=== PATIENT | male | born 1960 | race Caucasian/White ===

== ENCOUNTER 2017-10-25 16:32 | Emergency (ER) | payer BC, OTHER ==
[2017-10-25] MEDS ORDERED: Ibuprofen TAB* 600 MG PO ONE (17:32)
[2017-10-25] MEDS ORDERED: Albuterol 2.5 MG/3 ML NEB.SOL* (0.083%) INH ONE (17:33)
--- NOTE | 2017-10-25 17:40 | UC ---
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 HAD ST AT ONSET THAT IS NOW RESOLVED. WAS FOUND TO HAVE ELEVATED TEMP 100.2 HERE. - History of Current Complaint Chief Complaint: UCRespiratory Stated Complaint: COUGH Time Seen by Provider: 10/25/17 17:06 Hx Obtained From: Patient Onset/Duration: Gradual Onset, Lasting Days, Still Present Severity Currently: Moderate Severity Initially: Moderate Pain Intensity: 2 Pain Scale Used: 0-10 Numeric Associated Signs & Symptoms: Positive: Fever, Myalgia, Cough, Sore Throat - Allergy/Home Medications Allergies/Adverse Reactions: Allergies Allergy/AdvReac Type Severity Reaction Status Date / Time No Known Allergies Allergy Verified 07/11/15 15:05 Home Medications: Home Medications Acetaminophen/Dextromethorphan [Daytime Cold & Cough Liquid] 10/25/17 [History] PMH/Surg Hx/FS Hx/Imm Hx Endocrine History: Diabetes Cardiovascular History: Hypertension - Surgical History Surgical History: Yes Surgery Procedure, Year, and Place: Hernia repair left groin 2010, Right ankle repair, screws & plates 1983, RIGHT KNEE, LEFT HEEL - Family History Known Family History: Positive: Hypertension, Diabetes - Social History Alcohol Use: Rare Substance Use Type: None Smoking Status (MU): Never Smoked Tobacco Review of Systems Constitutional: Fever, Fatigue ENT: Sore Throat Respiratory: Shortness Of Breath, Cough Cardiovascular: Negative Gastrointestinal: Negative Musculoskeletal: Arthralgia, Myalgia All Other Systems Reviewed And Are Negative: Yes Physical Exam Triage Information Reviewed: Yes Appearance: No Pain Distress, Well-Nourished, Ill-Appearing - MOD Vital Signs: Initial Vital Signs Temp 100.2 F 10/25/17 17:12 Pulse 92 10/25/17 17:12 Resp 16 10/25/17 17:12 BP 135/63 10/25/17 17:12 Pulse Ox 91 10/25/17 17:12 Eyes: Positive: Conjunctiva Clear ENT: Positive: Hearing grossly normal, Pharynx normal, TMs normal Neck: Positive: Supple, Nontender, No Lymphadenopathy Respiratory: Positive: No respiratory distress, No accessory muscle use, Decreased breath sounds, Wheezing - DIFFUSE Cardiovascular Exam: Normal Abdomen Description: Positive: Soft Musculoskeletal: Positive: No Edema Neurological: Positive: Alert Psychological: Positive: Age Appropriate Behavior Skin: Negative: rashes Diagnostics - Laboratory Diagnostic Studies Completed/Ordered: FLU NEG - Radiology CXR Xray Interpretation: No Acute Changes Radiology Interpretation Completed By: Radiologist Re-Evaluation - Re-Evaluation First Eval Re-Evaluation Time: 18:20 Change: Improved Flu Course/Dx - Course Course Of Treatment: CXR UNREMARKABLE. FLU NEG. O2 SAT IMPROVED TO 95% AFTER NEB. TREAT WITH PREDNISONE, ALBUTEROL AND COUGH MED. AZITH IF SX NOT IMPROVING. F/U PCP. - Differential Dx/Diagnosis Provider Diagnoses: ACUTE BRONCHITIS WITH BRONCHOSPASM Discharge - Sign-Out/Discharge Documenting (check all that apply): Discharge/Admit/Transfer - Discharge Plan Condition: Stable Disposition: HOME Prescriptions: Albuterol HFA INHALER* [Ventolin HFA Inhaler*] 2 puff INH Q4H PRN #1 mdi PRN Reason: Shortness Of Breath Azithromycin 500 mg PO DAILY #5 tab Codeine Phosphate/Guaifenesin [Codeine-Guaifen 10-100 mg/5 ml] 5 - 10 ml PO Q6H PRN #150 ml MDD 40ML PRN Reason: Cough predniSONE TAB* [Deltasone TAB*] 50 mg PO DAILY #4 tab Patient Education Materials: Acute Bronchitis (ED), Bronchospasm (ED) Referrals: Robel Walter MD [Primary Care Provider] - If Needed Additional Instructions: CHEST X-RAY UNREMARKABLE TODAY. FLU SWAB NEGATIVE. YOUR SYMPTOMS ARE LIKELY VIRALLY MEDIATED. REST, HYDRATE, OTC MEDS NEEDED. WILL TREAT WITH PREDNISONE AND ALBUTEROL TO HELP WITH AIRWAY INFLAMMATION AND ALSO COUGH MEDICINE. BUT GIVEN YOUR PRESENTATION AND THE LENGTH OF TIME YOU HAVE BEEN ILL WE WILL ALSO GIVE YOU ANTIBIOTICS. I WOULD RECOMMEND HOLDING OFF FOR A FEW DAYS TO SEE IF YOU IMPROVE WITH THE STEROID AND INHALER. IF YOU START THE MEDICINE BE SURE TO TAKE IT FOR THE FULL COURSE. SEEK FOLLOW-UP WITH YOUR PCP IF YOU ARE NOT IMPROVING OVER THE NEXT 1-2 WEEKS. - Billing Disposition and Condition Condition: STABLE Disposition: HOME
--- NOTE | 2017-10-25 18:06 | RAD ---
INDICATION: Cough, fever. COMPARISON: July 14, 2008 CT abdomen. TECHNIQUE: Dual energy PA and routine lateral views of the chest were obtained. REPORT: Clear lungs and pleural spaces. Negative for pneumothorax. The heart, pulmonary vasculature, and mediastinal contours are unremarkable. Unremarkable osseous structures and soft tissue contours. IMPRESSION: No evidence for acute intrathoracic disease.
[2017-10-25] MEDS ORDERED: predniSONE TAB* 20 MG PO ONE (18:22)
[2017-10-25] MEDS ORDERED: Albuterol HFA INHALER* 8 gm MDI INH ONE (18:23)
[2017-10-25] MEDS ORDERED: guaiFENesin/CODIEN 100MG-10MG* 5 ML UDC PO ONE (18:23)
[2017-10-25 18:53] VITALS: BP 124/66
== END 2017-10-25 18:53 | disposition home or self-care (01) ==
LOC: UCEAST 16:32
DX: J20.9 Acute bronchitis, unspecified (principal); E11.9 Type 2 diabetes mellitus without complications; Z79.4 Long term (current) use of insulin; I10 Essential (primary) hypertension
CPT/HCPCS: 71046; 87502; 99213; A9270-GY; G0463; J7512

== ENCOUNTER 2018-04-08 21:01 | Emergency (ER) | payer OTHER ==
[2018-04-08 21:19] VITALS: BP 154/79
--- NOTE | 2018-04-08 21:33 | UC ---
Neck Pain HPI - HPI Summary HPI Summary: 57 yo male presents with left sided neck pain intermittently for the last week. He has been taking ibuprofen with good relief, but says that it is very painful when the ibuprofen wears off. 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 He denies headache, dizziness, injury/trauma, numbness, or tingling. Of note, he did start atorvastatin about 2 months ago. - History of Current Complaint Chief Complaint: UCBackPain Stated Complaint: NECK PAIN Time Seen by Provider: 04/08/18 21:32 Hx Obtained From: Patient Onset/Duration: Gradual Onset Severity: Mild Pain Intensity: 2 - Allergies/Home Medications Allergies/Adverse Reactions: Allergies Allergy/AdvReac Type Severity Reaction Status Date / Time No Known Allergies Allergy Verified 04/08/18 21:08 Home Medications: Home Medications Atorvastatin* [Lipitor*] 20 mg PO 1700 04/08/18 [History Confirmed 04/08/18] Cholesterol Medication 1 tab PO DAILY 04/08/18 [History] PMH/Surg Hx/FS Hx/Imm Hx Endocrine History: Diabetes, Dyslipidemia Cardiovascular History: Hypertension - Surgical History Surgical History: Yes Surgery Procedure, Year, and Place: Hernia repair left groin 2010, Right ankle repair, screws & plates 1983, RIGHT KNEE, LEFT HEEL - Family History Known Family History: Positive: Hypertension, Diabetes - Social History Occupation: Employed Full-time Lives: With Family Alcohol Use: Occasionally Substance Use Type: None Smoking Status (MU): Never Smoked Tobacco Review Of Systems Constitutional: Positive: Negative Skin: Positive: Negative Respiratory: Positive: Negative Cardiovascular: Positive: Negative Musculoskeletal: Positive: Other: - Neck pain Neurological: Positive: Negative Psychological: Positive: Negative All Other Systems Reviewed And Are Negative: Yes Physical Exam - Summary Physical Exam Summary: GENERAL: NAD. WDWN. No pain distress. SKIN: No rashes, sores, lesions, or open wounds. CHEST: No accessory muscle use. Breathing comfortably and in no distress. CV: Pulses intact radial and ulnar. Cap refill <2seconds MSK: LEFT NECK: Moderate TTP with muscle spasm to left upper trapezius muscle. FROM without pain to left shoulder. FROM NTTP cervical spine. Negative spurlings. 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 FROM b/l UEs without pain. NEURO: Alert. Sensations intact hand and all fingers. PSYCH: Age appropriate behavior. Triage Information Reviewed: Yes Vital Signs: Initial Vital Signs Temp 98.3 F 04/08/18 21:06 Pulse 67 04/08/18 21:06 Resp 18 04/08/18 21:06 BP 154/79 04/08/18 21:06 Pulse Ox 97 04/08/18 21:06 Vital Signs Reviewed: Yes Neck Pain Course/Dx - Course Course Of Treatment: I suspect pt has a muscle spasm, possibly due to his daily labor activities or exacerbated by his new statin medication. He was given Toradol in the clinic and an rx for flexeril. Will start him with Physical therapy and have him monitor his progress - if no improvement or if he develops more muscle spasms/aches, to f/u with his PCP to discuss his statin. - Differential Dx/Diagnosis Provider Diagnoses: Neck spasm Discharge - Sign-Out/Discharge Documenting (check all that apply): Patient Departure All imaging exams completed and their final reports reviewed: No Studies - Discharge Plan Condition: Stable Disposition: HOME Prescriptions: Cyclobenzaprine TAB* [Flexeril 10 MG TAB*] 10 mg PO TID PRN #21 tab PRN Reason: Pain Patient Education Materials: Muscle Spasm (ED) Referrals: Robel Walter MD [Primary Care Provider] - Additional Instructions: If you develop a fever, shortness of breath, chest pain, new or worsening symptoms - please call your PCP or go to the ED. Your blood pressure was high at todays visit. Please see your primary provider within 4 weeks for recheck and re-evaluation. 1) Please schedule a follow up appointment with Physical therapy for further treatment - Billing Disposition and Condition Condition: STABLE Disposition: Home
[2018-04-08] MEDS ORDERED: Ketorolac INJ* 60 MG/2 ML VIAL IM ONE (21:43)
[2018-04-08] MEDS ORDERED: Cyclobenzaprine TAB* 10 MG PO ONE (21:50)
== END 2018-04-08 22:30 | disposition home or self-care (01) ==
LOC: UCEAST 21:01
DX: M62.838 Other muscle spasm (principal); E78.5 Hyperlipidemia, unspecified
CPT/HCPCS: 96372; 99212; A9270-GY; G0463; J1885

== ENCOUNTER 2018-09-21 10:31 | Observation (INO) | payer BC, OTHER ==
--- NOTE | 2018-09-21 10:37 | ED ---
HPI Diabetic - HPI Summary HPI Summary: This pt is a 58 y/o male, type 1 DM, presenting to [facility] via EMS for hypoglycemia. EMS reports the pt was found on the floor unconscious by his today. His blood glucose was 12 today. EMS notes pt did take his medications this morning and had a couple of candy bars. Pt denies chest pain or SOB. EMS administered 1 bag of Dextrose and blood glucose was up to 72. Repeat blood glucose was 27 prior to coming in to the ED per EMS. EMS started a second bag of Dextrose as they were coming in to the ED. He did not take any pain medications today. Per EMS pt was also hypoglycemic one week ago with blood glucose of 17 and was administered 2 bags of Dextrose. Pt refused transfer to the ED at that time. EMS notes no recent change in medications. Pt states he takes 28 units of Lantus in the morning. He is unsure of any other medications. - History Of Current Complaint Hx Obtained From: Patient, EMS Onset/Duration: Lasting Hours, Still Present Timing: Hours Severity Currently: Moderate Character: Lethargic Aggravating: Nothing Alleviating: Nothing Associated Signs & Symptoms: Decreased Level of Conciousness Related History: DM I - Allergies/Home Medications Allergies/Adverse Reactions: Allergies Allergy/AdvReac Type Severity Reaction Status Date / Time No Known Allergies Allergy Verified 09/21/18 11:06 Home Medications: Home Medications Insulin GLARGINE(*) [Lantus(*)] 28 unit INJ QAM 09/21/18 [History Confirmed ] PMH/Surg Hx/FS Hx/Imm Hx Endocrine/Hematology History: Reports: Hx Diabetes - DM 1 Denies: Hx Thyroid Disease Cardiovascular History: Reports: Hx Hypertension Respiratory History: Denies: Hx Asthma, Hx Chronic Obstructive Pulmonary Disease (COPD) GI History: Denies: Hx Ulcer - Surgical History Surgery Procedure, Year, and Place: Hernia repair left groin 2010, Right ankle repair, screws & plates 1983, RIGHT KNEE, LEFT HEEL Infectious Disease History: Denies: Hx Clostridium Difficile, Hx Hepatitis, Hx Human Immunodeficiency Virus (HIV), Hx Shingles, Hx Tuberculosis - Family History Known Family History: Positive: Hypertension, Diabetes - Social History Alcohol Use: Occasionally Substance Use Type: Reports: None Smoking Status (MU): Never Smoked Tobacco Review of Systems Constitutional: Other - POS: hypoglycemia Negative: Fever Negative: Chest Pain Negative: Shortness Of Breath Neurological: Other - POS: lethargic All Other Systems Reviewed And Are Negative: Yes Physical Exam - Summary Physical Exam Summary: VITAL SIGNS: Reviewed. GENERAL: Patient is a well-developed and nourished male who is lying comfortable in the stretcher. Patient is not in any acute respiratory distress. HEAD AND FACE: No signs of trauma. No ecchymosis, hematomas or skull depressions. No sinus tenderness. EYES: PERRLA, EOMI x 2, No injected conjunctiva, no nystagmus. EARS: Hearing grossly intact. Ear canals and tympanic membranes are within normal limits. MOUTH: Oropharynx within normal limits. NECK: Supple, trachea is midline, no adenopathy, no JVD, no carotid bruit, no c- spine tenderness, neck with full ROM. CHEST: Symmetric, no tenderness at palpation LUNGS: Clear to auscultation bilaterally. No wheezing or crackles. CVS: Regular rate and rhythm, S1 and S2 present, no murmurs or gallops appreciated. ABDOMEN: Soft, non-tender. No signs of distention. No rebound, no guarding, and no masses palpated. Bowel sounds are normal. EXTREMITIES: FROM in all major joints, no edema, no cyanosis or clubbing. NEURO: Alert and oriented x 3. Pt is somnolent. SKIN: Warm. Pt is clammy. GCS: 15 Triage Information Reviewed: Yes Vital Signs Reviewed: Yes Diagnostics - Laboratory Result Diagrams: 09/21/18 11:38 09/21/18 11:38 Lab Statement: Any lab studies that have been ordered have been reviewed, and results considered in the medical decision making process. - Radiology Chest XR Radiology Interpretation Completed By: Radiologist Summary of Radiographic Findings: IMPRESSION: No active cardiopulmonary disease is noted. Dr. Otero has reviewed this report. - CT Brain CT CT Interpretation Completed By: Radiologist Summary of CT Findings: IMPRESSION: No acute intracranial pathology. Dr. Otero has reviewed this report. - EKG 10:58 Cardiac Rate: NL - at 66 bpm EKG Rhythm: Sinus Rhythm Summary of EKG Findings: No ST elevations. Re-Evaluation - Re-Evaluation First Eval Re-Evaluation Time: 11:30 Comment: Fingerstick BG down to 9. Second Eval Re-Evaluation Time: 12:03 Comment: Fingerstick BG is 43. Diabetic Course/Dx - Course Assessment/Plan: This patient is a 58-year-old male who presents to the emergency department with a chief complaint of altered mental status. The patients blood sugar was 12 initially and he was started on D10. His sugar went up to the 100s. However half an hour later his sugar went down to 28. Patient was then restarted in D10. In the ED the patient is alert and oriented 3. He seems somnolent and his answers are slow. I was informed by the nurse that the fingerstick is 9 therefore I ordered the D50 IV push. And he will be replaced in the dextrose with normal saline at 120 cc per [address] Head CT impression: No acute intracranial pathology. Blood work without any significant abnormality except for potassium level of 2.9, glucose 129. In the ER course the patient had multiple fingersticks and it ranged from 9 to 144. The patient was given multiple doses of D50 and he is in the D10 drip. At this time I discussed my physical exam and findings with and Dr. Espinosa, hospitalist , who accepted the patient for admission. At this point the patient is hemodynamically stable, he is alert oriented 3. - Diagnoses Provider Diagnoses: Uncontrolled diabetes mellitus - Physician Notifications Discussed Care Of Patient With: Марина Espinosa - hospitalist Time Discussed With Above Provider: 12:28 Instructed by Provider To: Admit As Inpatient Discharge - Sign-Out/Discharge Documenting (check all that apply): Patient Departure - Admit to [facility] Patient Received Moderate/Deep Sedation with Procedure: No - Discharge Plan Condition: Stable Disposition: ADMITTED TO [facility] - Billing Disposition and Condition Condition: STABLE Disposition: Admitted to [facility] - Attestation Statements Document Initiated by Jemale: Yes Documenting Scribe: Eleni Royal Provider For Whom Vickie is Documenting (Include Credential): Peyman Otero MD Scribe Attestation: IEleni, scribed for Peyman Otero MD on 09/21/18 at 1842. Scribe Documentation Reviewed: Yes Provider Attestation: The documentation as recorded by the Eleni danielle accurately reflects the service I personally performed and the decisions made by me, Peyman Otero MD Status of Scribe Document: Viewed
[2018-09-21] MEDS ORDERED: Dextrose 50% Syringe 50 ML* 25 GM/50 ML SYRINGE ONE (11:27)
[2018-09-21] MEDS ORDERED: Dextrose 50% Syringe 50 ML* 25 GM/50 ML SYRINGE IV PUSH ONE (11:40)
[2018-09-21 11:55] LABS: ABS Basophils 0 10^3/ul (0-0.2); ABS Eosinophils 0.1 10^3/ul (0-0.6); ABS Lymphocytes 1.4 10^3/ul (1.0-4.8); ABS Monocytes 0.8 10^3/ul (0-0.8); ABS Neutrophils 7.6 10^3/ul (1.5-7.7); ABS Nucleated RBC 0 10^3/ul; Eosinophil % 1.1 %; Hematocrit 40 % (36-46); Hemoglobin 13.4 g/dL (14.0-18.0); Lymphocyte % 14.3 %; Mean Corpuscular HGB Conc 34 g/dL (31-36); Mean Corpuscular Hemoglobin 33 pg (27-31); Mean Corpuscular Volume 98 fL (80-94); Mean Platelet Volume 8.2 fL (7.4-10.4); Nucleated Red Blood Cells % 0; Platelet Count 209 10^3/uL (150-450); Red Blood Count 4.09 10^6 /uL (4.18-5.48); Red Cell Distribution Width 14 % (10.5-15); White Blood Count 9.9 10^3/uL (3.5-10.8)
[2018-09-21] MEDS ORDERED: D10W 1000 ML BAG* 1,000 ML IV SCH (12:00)
[2018-09-21 12:16] LABS: ALT 21 U/L (7-52); AST 21 U/L (13-39); Albumin 4.1 g/dL (3.2-5.2); Albumin/Globulin Ratio 1.7 (1-3); Alkaline Phosphatase 61 U/L (34-104); Anion Gap 6 mmol/L (2-11); BUN/Creatinine Ratio 23.9 (8-20); Blood Urea Nitrogen 22 mg/dL (6-24); CO2 Carbon Dioxide 26 mmol/L (22-32); Calcium 8.7 mg/dL (8.6-10.3); Chloride 107 mmol/L (101-111); Creatine Kinase 85 U/L (10-223); EGFR African American 102.2 (>60); EGFR Non-African American 84.5 (>60); Globulin 2.4 g/dL (2-4); Glucose 123 mg/dL (70-100); Potassium 2.9 mmol/L (3.5-5.0); Sodium 139 mmol/L (135-145); Total Protein 6.5 g/dL (6.4-8.9)
[2018-09-21 12:19] LABS: Acetaminophen < 15 mcg/mL; Alcohol < 10 mg/dL (<10)
[2018-09-21] MEDS ORDERED: Potassium Chlor TAB* 20 MEQ TAB.ER PO ONE (12:22)
[2018-09-21] MEDS ORDERED: KCL 10 MEQ/50 ML IVPREMIX* 10 MEQ/50 ML BAG IV ONE (12:23)
[2018-09-21] MEDS ORDERED: Dextrose 50% VIAL 50 ml ONE (12:24)
[2018-09-21] MEDS ORDERED: Dextrose 50% VIAL 50 ml IV PRN (12:26)
[2018-09-21 12:34] LABS: TSH (Thyroid Stimulating Horm) 7.35 mcIU/mL (0.34-5.60)
[2018-09-21] MEDS ORDERED: Al Hydrox/Mg Hydrox/Simet LIQ* 30 ML UDC PO PRN (13:40)
[2018-09-21] MEDS ORDERED: Dextrose 50% Syringe 50 ML* 25 GM/50 ML SYRINGE IV PUSH PRN ×2 (13:53→20:15)
[2018-09-21] MEDS ORDERED: Enoxaparin(*) 40 MG/0.4 ML SYR SUBCUT SCH (14:00)
[2018-09-21] MEDS: KCL 20 MEQ/100 ML IVPREMIX* 20 MEQ/100 ML BAG IV SCH ×2 (14:13→16:26)
[2018-09-21 14:19] LABS: Free T4 0.87 ng/dL (0.61-1.12)
--- NOTE | 2018-09-21 15:42 | HP ---
CC: Dr. Walter * HISTORY AND PHYSICAL: DATE OF ADMISSION: 09/21/18 TIME OF ADMISSION: 1:45 p.m. CHIEF COMPLAINT: "I don't know." HISTORY OF PRESENT ILLNESS: This is a 58-year-old man with history of type 1 diabetes for the past 48 years, who presents to the emergency department after his found him to be unresponsive this morning. He recalls very little about the morning, so his provides most of the HPI. He woke up after 7. He recalled this and says he felt fine at that time. He took his blood sugar when he woke up and it was 78. Then, he ate some candy, took a shower and took his 28 units of morning insulin. Neither he nor his believe that he took any more than prescribed. His tells the rest of the HPI because he does not remember anything after the shower. She says that after he took a shower, he went to the bedroom and got dressed and she heard him on the phone and then she heard nothing coming from the room, so she went in to check on him and he was unconscious. She called EMS and when EMS arrived, his blood sugar was 12. Of note, something similar happened last week; however, he did not lose consciousness and EMS administered dextrose in the field and he did not come to the emergency department. EMERGENCY DEPARTMENT COURSE: After EMS gave the first dextrose, his blood sugar raised to 72 and then prior to arrival to the ED, it dropped again to 24, so the second dextrose was infusing and when he arrived to the ED, his sugar was 95. After the 95, his next sugar was a 9, which he received an amp of dextrose, then it was 43. He received another amp of dextrose, then it was 28, and after the following amp of dextrose, it was 144. His most recent blood glucose was 102. He was also noted to be hypothermic, so he is currently on a Marc Hugger. He says he feels much better now that he has the Marc Hugger on him. He has no current complaints and has a good appetite. He says the most recent time his insulin was adjusted was approximately 2 months ago and prior to 1 week ago, his sugars have been running on the high side. He reports a good appetite. He has not skipped any meals, and yesterday his intake was normal with a TV dinner for dinner, a slice of pizza for a late lunch/snack, and toast and juice for breakfast. She and her family say this is a normal day for him. He describes no recent illness. He denies fevers, chills, cough, nausea, vomiting, constipation, diarrhea, dysuria, hematuria, muscle aches, or any other symptoms. PAST MEDICAL HISTORY: Type 1 diabetes. HOME MEDICATIONS: 1. He takes Lantus 28 units in the morning. 2. Humalog sliding scale based on sugar, he takes 1 unit for each 50 over 150. 3. Flexeril 10 mg t.i.d. p.r.n. 4. Motrin 800 mg q.8 p.r.n. 5. Atorvastatin 20 mg daily. 6. Ramipril 10 mg daily. ALLERGIES: No known drug allergies. FAMILY HISTORY: His brother has type 1 diabetes and his niece has type 1 diabetes. 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 He drinks no alcohol. He was not working more than usual yesterday. REVIEW OF SYSTEMS: As per the HPI. The remainder of 14-point review of systems is negative. PHYSICAL EXAMINATION GENERAL: Alert, nontoxic-appearing man, in no distress. He is a little sleepy , but participates alertly in our conversation. VITAL SIGNS: Temperature 95.5, heart rate 71, respiratory rate 16, pulse ox 97 % on room air, blood pressure 139/66. HEENT: Pupils are equal, round, and reactive to light. His oral mucosa is dry. NECK: No JVP. No adenopathy. Thyroid is not palpable. CHEST: He is in a regular rate and rhythm with no murmurs. LUNGS: Clear bilaterally. ABDOMEN: Soft, nontender, nondistended. No guarding or rebound. No CVA tenderness. EXTREMITIES: Warm. No edema, rashes, or ulcers. SKIN: He does have some hyperpigmented spots on his back. DIAGNOSTIC STUDIES/LAB DATA: Sodium 139, potassium 2.9, chloride 107, bicarb 26, BUN 22, creatinine 0.92, glucose 123, ammonia 45, TSH 7.35. Troponin 0.00. Alcohol is less than 10, acetaminophen is less than 15, and salicylates is 4.9. White blood cells 9.9, hemoglobin 13.4, platelets 209. Brain CT shows no acute intracranial pathology. A chest x-ray shows no active cardiopulmonary disease and an EKG shows normal sinus rhythm at 66, normal axis , normal intervals, no ST or T-wave changes. ASSESSMENT AND PLAN: This is a 58-year-old man with history of type 1 diabetes , who presents to the emergency department with an episode of unresponsiveness and was found to be profoundly hypoglycemic repeatedly. 1. Hypoglycemia, likely related to his insulin; however, these doses have not been adjusted. He has had a good appetite and has no evidence of localizing infection and certainly not sepsis at this point. He is currently stable on a D10 drip and I am continuing this with q.1 fingersticks and sending him to the ICU. His insulin will be on hold and he needs more of a workup to evaluate for hypoglycemia. His TSH is elevated and more thyroid studies are pending. Hemoglobin A1c is pending. I am cycling his troponins and getting a morning cortisol. His renal function is normal and his liver function is normal as well. I am consulting Dr. Walter and appreciate his input from endocrine standpoint as well as from a primary care standpoint. I am also sending blood cultures. 2. Hypothermia. I suspect this is related to the hypoglycemia; however, may also be a reflection of another systemic issue working up as above. He is currently on a Marc Hugger. 3. Hypertension. He is normotensive. I am continuing his ramipril. 4. DVT prophylaxis: Lovenox subcu. 5. Diet: Unrestricted. 6. Disposition: Admit to the ICU for frequent Accu-Cheks and evaluation by Dr. Walter. [id number]/[facility] #: [id number] JOELLE
[2018-09-21 16:43] LABS: Urine Appearance Clear; Urine Bilirubin Negative (Negative); Urine Blood Negative (Negative); Urine Color Straw; Urine Glucose 2+(150 mg/dL) (Negative); Urine Ketones Negative (Negative); Urine Nitrite Negative (Negative); Urine Protein Negative (Negative); Urine Specific Gravity 1.008 (1.010-1.030); Urine Urobilinogen Negative (Negative)
[2018-09-21 16:57] LABS: Barbiturates Urine Screen None Detected (None Detect); Benzodiazepine Urine Screen None Detected (None Detect); Urine Cannabinoids Screen None Detected (None Detect)
[2018-09-21] MEDS ORDERED: Atorvastatin* 20 MG TAB PO SCH (17:00)
[2018-09-21] MEDS: Insulin LISPRO* 1 UNITS UNIT SUBCUT SCH (21:53)
[2018-09-22] MEDS: Insulin LISPRO* 1 UNITS UNIT SUBCUT SCH ×4 (00:16→10:24)
[2018-09-22 05:55] LABS: ABS Basophils 0 10^3/ul (0-0.2); ABS Eosinophils 0.1 10^3/ul (0-0.6); ABS Lymphocytes 1.4 10^3/ul (1.0-4.8); ABS Monocytes 0.6 10^3/ul (0-0.8); ABS Neutrophils 6.1 10^3/ul (1.5-7.7); ABS Nucleated RBC 0 10^3/ul; Eosinophil % 0.8 %; Hematocrit 37 % (36-46); Hemoglobin 12.4 g/dL (14.0-18.0); Mean Corpuscular HGB Conc 34 g/dL (31-36); Mean Corpuscular Hemoglobin 33 pg (27-31); Mean Corpuscular Volume 97 fL (80-94); Mean Platelet Volume 8.1 fL (7.4-10.4); Nucleated Red Blood Cells % 0; Platelet Count 189 10^3/uL (150-450); Red Cell Distribution Width 14 % (10.5-15); White Blood Count 8.2 10^3/uL (3.5-10.8)
[2018-09-22] MEDS ORDERED: Insulin GLARGINE(*) 1 UNITS UNIT SUBCUT SCH ×2 (06:00→08:00)
[2018-09-22 06:15] LABS: BUN/Creatinine Ratio 18.1 (8-20); Calcium 8.7 mg/dL (8.6-10.3); EGFR African American 99.7 (>60); EGFR Non-African American 82.4 (>60); Potassium 4.5 mmol/L (3.5-5.0)
--- NOTE | 2018-09-22 07:38 | PN ---
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 1 week ago he had a similar episode. He injects his lantus insulin into his thigh - has never used his abdomen. He had a glucose < 50 mg/dl. Yesterday, he only took lantus 28 units and his glucose dropped precipitously despite having some candy. It required IV infusion of dextrose to bring it up. He is adamant he didn't take any short acting insulin and that he didn't mix up the pen devices. He has had labile glycemic control for years and has been resistant to change. He has had no other intercurrent illnesses recently and no nausea/vomiting. This morning he is feeling back to baseline. He has no focal symptoms Active Problems: Active Problems Severe diabetic hypoglycemia (Acute) E11.649 Diabetic retinopathy associated with type 1 diabetes mellitus (Chronic) E10.319 History of Bibi thyroiditis (Chronic) Z86.39 Hypercholesterolemia (Chronic) E78.00 Type 1 diabetes mellitus (Chronic) Current Medications: Current Medications Al Hydrox/Mg Hydrox/Simethicone (Maalox Plus*) 30 ml PO Q6H PRN PRN Reason: INDIGESTION Atorvastatin Calcium (Lipitor*) 20 mg PO 1700 JENNA Last Admin: 09/21/18 17:28 Dose: 20 mg Dextrose (D50w Syringe 50 Ml*) 25 gm IV PUSH .FOR FS < 60 - SS PRN PRN Reason: FS < 60 Enoxaparin Sodium (Lovenox(*)) 40 mg SUBCUT Q24H [facility] Last Admin: 09/21/18 14:52 Dose: 40 mg Insulin Glargine (Lantus(*)) 14 units SUBCUT Q24H JENNA Insulin Human Lispro (Humalog*) 0 units SUBCUT Q3HR JENNA; Protocol Last Admin: 09/22/18 06:22 Dose: Not Given Ramipril (Altace Cap*) 10 mg PO DAILY [facility] Home Medications: Home Medications Medication Instructions Recorded Confirmed Type Ibuprofen TAB* [Advil TAB*] 800 tab PO Q8HR PRN 01/06/13 09/21/18 History Insulin Lispro [Humalog] 1 - 100 unit INJ SEE INSTRUCTIONS 01/06/13 09/21/18 History PRN Ramipril CAP* [Altace CAP*] 10 mg PO DAILY 01/06/13 09/21/18 History Atorvastatin* [Lipitor*] 20 mg PO 1700 04/08/18 09/21/18 History Cyclobenzaprine TAB* [Flexeril 10 10 mg PO TID PRN #21 tab 04/08/18 09/21/18 Rx MG TAB*] Insulin GLARGINE(*) [Lantus(*)] 28 unit INJ QAM 09/21/18 09/21/18 History Allergies: Allergies Allergy/AdvReac Type Severity Reaction Status Date / Time No Known Allergies Allergy Verified 09/21/18 11:06 Objective - Vital Signs Vital Signs: Vital Signs 09/21/18 09/21/18 09/21/18 10:42 10:43 10:44 Temperature 95.5 F Pulse Rate 65 62 Respiratory 14 19 19 Rate Blood Pressure 155/66 155/66 (mmHg) O2 Sat by Pulse 99 99 Oximetry 09/21/18 09/21/18 09/21/18 10:59 11:00 11:43 Temperature Pulse Rate 65 69 58 Respiratory 23 15 Rate Blood Pressure 131/85 (mmHg) O2 Sat by Pulse 98 98 Oximetry 09/21/18 09/21/18 09/21/18 12:00 12:06 12:08 Temperature Pulse Rate 64 63 66 Respiratory 16 13 18 Rate Blood Pressure 155/82 150/78 (mmHg) O2 Sat by Pulse 98 99 99 Oximetry 09/21/18 09/21/18 09/21/18 12:09 12:10 12:14 Temperature Pulse Rate 67 65 66 Respiratory 21 15 13 Rate Blood Pressure 160/78 141/71 135/67 (mmHg) O2 Sat by Pulse 98 98 98 Oximetry 09/21/18 09/21/18 09/21/18 12:19 12:43 13:00 Temperature Pulse Rate 68 65 65 Respiratory 22 21 17 Rate Blood Pressure 143/70 140/70 (mmHg) O2 Sat by Pulse 98 98 98 Oximetry 09/21/18 09/21/18 09/21/18 13:13 13:43 14:00 Temperature Pulse Rate 65 71 67 Respiratory 15 16 14 Rate Blood Pressure 128/70 139/66 (mmHg) O2 Sat by Pulse 97 97 98 Oximetry 09/21/18 09/21/18 09/21/18 14:13 14:15 14:29 Temperature 97.9 F Pulse Rate 70 73 74 Respiratory 20 17 22 Rate Blood Pressure 137/70 137/70 130/60 (mmHg) O2 Sat by Pulse 98 98 97 Oximetry 09/21/18 09/21/18 09/21/18 14:30 15:00 15:01 Temperature 98.4 F Pulse Rate 73 73 74 Respiratory 23 18 20 Rate Blood Pressure 130/60 146/64 (mmHg) O2 Sat by Pulse 98 97 99 Oximetry 09/21/18 09/21/18 09/21/18 15:30 16:00 16:01 Temperature 97.2 F Pulse Rate 77 77 76 Respiratory 19 18 18 Rate Blood Pressure 149/69 143/69 (mmHg) O2 Sat by Pulse 99 99 98 Oximetry 09/21/18 09/21/18 09/21/18 17:00 17:01 18:00 Temperature Pulse Rate Respiratory 22 20 20 Rate Blood Pressure (mmHg) O2 Sat by Pulse Oximetry 09/21/18 09/21/18 09/21/18 18:19 19:00 19:50 Temperature 99.3 F Pulse Rate 81 82 Respiratory 23 19 Rate Blood Pressure 133/61 142/66 (mmHg) O2 Sat by Pulse 100 99 Oximetry 09/21/18 09/21/18 09/21/18 19:53 20:00 21:00 Temperature Pulse Rate 76 81 Respiratory 17 23 17 Rate Blood Pressure 133/59 143/66 (mmHg) O2 Sat by Pulse 97 97 Oximetry 09/21/18 09/22/18 09/22/18 23:40 00:00 01:00 Temperature Pulse Rate Respiratory 18 16 16 Rate Blood Pressure (mmHg) O2 Sat by Pulse Oximetry 09/22/18 03:32 Temperature 98.8 F Pulse Rate 76 Respiratory 16 Rate Blood Pressure 133/62 (mmHg) O2 Sat by Pulse 95 Oximetry - Intake and Output Intake and Output: Intake & Output 09/19/18 09/20/18 09/21/18 09/22/18 11:59 11:59 11:59 11:59 Intake Total 400 Output Total 1080 Balance -680 Weight 150 lb 150 lb Intake: IV Fluids 400 Oral 0 Output: Urine 1080 Other: # Voids 0 ADLs: Meal Record Start: 09/21/18 14: 14 Freq: 09,13,18 Status: Active Protocol: Created 09/21/18 14:14 System (Rec: 03/25/19 14:14 System [id number]) Document 09/21/18 18:00 [id number] (Rec: 09/21/18 18:26 [id number] ICU-M25) Intake and Output Start: 09/21/18 10: 58 Freq: Status: Complete Protocol: Created 09/21/18 10:58 System (Rec: 09/21/18 10:58 System [id number]) Intake and Output Start: 09/21/18 14: 14 Freq: Q4H Status: Active Protocol: Created 09/21/18 14:14 System (Rec: 09/21/18 14:14 System ICU-C06) Document 09/21/18 16:00 [id number] (Rec: 09/21/18 16:26 [id number] ICU-C20) Document 09/21/18 17:00 [id number] (Rec: 09/21/18 17:15 [id number] ICU-M25) Document 09/21/18 19:00 [id number] (Rec: 09/21/18 19:10 [id number] ICU-C16) Document 09/21/18 19:53 [id number] (Rec: 09/21/18 19:59 [id number] ICU-M33) Document 09/21/18 21:00 [id number] (Rec: 09/22/18 01:14 [id number] MEDL-C01) Document 09/21/18 22:00 [id number] (Rec: 09/22/18 01:14 [id number] MEDL-C01) Document 09/21/18 23:00 [id number] (Rec: 09/22/18 01:14 [id number] MEDL-C01) Document 09/22/18 00:00 [id number] (Rec: 09/22/18 01:15 [id number] MEDL-C01) Document 09/22/18 01:00 [id number] (Rec: 09/22/18 01:15 [id number] MEDL-C01) Document 09/22/18 01:17 [id number] (Rec: 09/22/18 01:23 [id number] MEDL-C01) Document 09/22/18 05:17 [id number] (Rec: 09/22/18 05:19 [id number] MED-C11) - Physical Exam General: No Cyanosis, No Anemia, No Jaundice, No Clubbing Skin: Normal: Rash Lungs and Chest: Yes: Chest Expansion Full, Chest Expansion Symetrica, Percussion Note Resonant, Vessicular Breath Sounds. No: Crackles, Wheezes Heart Rate and Rhythm: Regular JVP: Not Elevated Additional Cardiovascular: Yes: Normal Heart Sounds. No: Heart Murmur, Pedal Edema Abdominal Exam: Yes: Soft, Bowel Sounds Present. No: Distention, Abdominal Mass , Hepatomegaly, Abdominal Tenderness - Extremities Cranial Nerves II-XII Intact: Yes Limbs: Normal Power, Normal Tone, Normal Coordination - Neuro Orientation: A/O x3 Psychiatric: Normal Speech: Normal Results - Results Lab Results: Laboratory Results - last 24 hr 09/21/18 09/21/18 09/21/18 10:53 11:24 11:26 WBC RBC Hgb Hct MCV MCH MCHC RDW Plt Count MPV Neut % (Auto) Lymph % (Auto) [place] % (Auto) Eos % (Auto) Baso % (Auto) Absolute Neuts (auto) Absolute Lymphs (auto) Absolute Monos (auto) Absolute Eos (auto) Absolute Basos (auto) Absolute Nucleated RBC Nucleated RBC % Sodium Potassium Chloride Carbon Dioxide Anion Gap BUN Creatinine Est GFR ( Amer) Est GFR (Non-Af Amer) BUN/Creatinine Ratio Glucose POC Glucose (mg/dL) 95 9 L* 9 L* Lactic Acid Calcium Total Bilirubin AST ALT Alkaline Phosphatase Ammonia Total Creatine Kinase Troponin I Total Protein Albumin Globulin Albumin/Globulin Ratio TSH Free T4 Total T3 Cortisol Urine Color Urine Appearance Urine pH Ur Specific [place] Urine Protein Urine Ketones Urine Blood Urine Nitrate Urine Bilirubin Urine Urobilinogen Ur Leukocyte Esterase Urine Glucose Salicylates Urine Opiates Screen Acetaminophen Ur Barbiturates Screen Ur Phencyclidine Scrn Ur Amphetamines Screen U Benzodiazepines Scrn Urine Cocaine Screen U Cannabinoids Screen Serum Alcohol 09/21/18 09/21/18 09/21/18 11:38 11:38 11:38 WBC 9.9 RBC 4.09 L Hgb 13.4 L Hct 40 MCV 98 H MCH 33 H MCHC 34 RDW 14 Plt Count 209 MPV 8.2 Neut % (Auto) 76.1 Lymph % (Auto) 14.3 [place] % (Auto) 8.1 Eos % (Auto) 1.1 Baso % (Auto) 0.4 Absolute Neuts (auto) 7.6 Absolute Lymphs (auto) 1.4 Absolute Monos (auto) 0.8 Absolute Eos (auto) 0.1 Absolute Basos (auto) 0 Absolute Nucleated RBC 0 Nucleated RBC % 0 Sodium 139 Potassium 2.9 L Chloride 107 Carbon Dioxide 26 Anion Gap 6 BUN 22 Creatinine 0.92 Est GFR ( Amer) 102.2 Est GFR (Non-Af Amer) 84.5 BUN/Creatinine Ratio 23.9 H Glucose 123 H POC Glucose (mg/dL) Lactic Acid Calcium 8.7 Total Bilirubin 0.40 AST 21 ALT 21 Alkaline Phosphatase 61 Ammonia 45 Total Creatine Kinase 85 Troponin I 0.00 Total Protein 6.5 Albumin 4.1 Globulin 2.4 Albumin/Globulin Ratio 1.7 TSH 7.35 H Free T4 0.87 Total T3 99 Cortisol Urine Color Urine Appearance Urine pH Ur Specific [place] Urine Protein Urine Ketones Urine Blood Urine Nitrate Urine Bilirubin Urine Urobilinogen Ur Leukocyte Esterase Urine Glucose Salicylates 4.90 Urine Opiates Screen Acetaminophen < 15 Ur Barbiturates Screen Ur Phencyclidine Scrn Ur Amphetamines Screen U Benzodiazepines Scrn Urine Cocaine Screen U Cannabinoids Screen Serum Alcohol < 10 09/21/18 09/21/18 09/21/18 11:38 11:38 12:01 WBC RBC Hgb Hct MCV MCH MCHC RDW Plt Count MPV Neut % (Auto) Lymph % (Auto) [place] % (Auto) Eos % (Auto) Baso % (Auto) Absolute Neuts (auto) Absolute Lymphs (auto) Absolute Monos (auto) Absolute Eos (auto) Absolute Basos (auto) Absolute Nucleated RBC Nucleated RBC % Sodium Potassium Chloride Carbon Dioxide Anion Gap BUN Creatinine Est GFR ( Amer) Est GFR (Non-Af Amer) BUN/Creatinine Ratio Glucose POC Glucose (mg/dL) 43 L Lactic Acid 1.6 Calcium Total Bilirubin AST ALT Alkaline Phosphatase Ammonia Total Creatine Kinase Troponin I Total Protein Albumin Globulin Albumin/Globulin Ratio TSH Free T4 Total T3 Cortisol Urine Color Urine Appearance Urine pH Ur Specific [place] Urine Protein Urine Ketones Urine Blood Urine Nitrate Urine Bilirubin Urine Urobilinogen Ur Leukocyte Esterase Urine Glucose Salicylates Urine Opiates Screen None detected Acetaminophen Ur Barbiturates Screen None detected Ur Phencyclidine Scrn None detected Ur Amphetamines Screen None detected U Benzodiazepines Scrn None detected Urine Cocaine Screen None detected U Cannabinoids Screen None detected Serum Alcohol 09/21/18 09/21/1809/21/19 12:20 12:58 13:34 WBC RBC Hgb Hct MCV MCH MCHC RDW Plt Count MPV Neut % (Auto) Lymph % (Auto) [place] % (Auto) Eos % (Auto) Baso % (Auto) Absolute Neuts (auto) Absolute Lymphs (auto) Absolute Monos (auto) Absolute Eos (auto) Absolute Basos (auto) Absolute Nucleated RBC Nucleated RBC % Sodium Potassium Chloride Carbon Dioxide Anion Gap BUN Creatinine Est GFR ( Amer) Est GFR (Non-Af Amer) BUN/Creatinine Ratio Glucose POC Glucose (mg/dL) 28 L* 144 H 102 H Lactic Acid Calcium Total Bilirubin AST ALT Alkaline Phosphatase Ammonia Total Creatine Kinase Troponin I Total Protein Albumin Globulin Albumin/Globulin Ratio TSH Free T4 Total T3 Cortisol Urine Color Urine Appearance Urine pH Ur Specific [place] Urine Protein Urine Ketones Urine Blood Urine Nitrate Urine Bilirubin Urine Urobilinogen Ur Leukocyte Esterase Urine Glucose Salicylates Urine Opiates Screen Acetaminophen Ur Barbiturates Screen Ur Phencyclidine Scrn Ur Amphetamines Screen U Benzodiazepines Scrn Urine Cocaine Screen U Cannabinoids Screen Serum Alcohol 09/21/18 09/21/18 09/21/18 13:57 14:11 15:00 WBC RBC Hgb Hct MCV MCH MCHC RDW Plt Count MPV Neut % (Auto) Lymph % (Auto) [place] % (Auto) Eos % (Auto) Baso % (Auto) Absolute Neuts (auto) Absolute Lymphs (auto) Absolute Monos (auto) Absolute Eos (auto) Absolute Basos (auto) Absolute Nucleated RBC Nucleated RBC % Sodium Potassium Chloride Carbon Dioxide Anion Gap BUN Creatinine Est GFR ( Amer) Est GFR (Non-Af Amer) BUN/Creatinine Ratio Glucose POC Glucose (mg/dL) 108 H 199 H Lactic Acid Calcium Total Bilirubin AST ALT Alkaline Phosphatase Ammonia Total Creatine Kinase Troponin I 0.01 Total Protein Albumin Globulin Albumin/Globulin Ratio TSH Free T4 Total T3 Cortisol Urine Color Urine Appearance Urine pH Ur Specific [place] Urine Protein Urine Ketones Urine Blood Urine Nitrate Urine Bilirubin Urine Urobilinogen Ur Leukocyte Esterase Urine Glucose Salicylates Urine Opiates Screen Acetaminophen Ur Barbiturates Screen Ur Phencyclidine Scrn Ur Amphetamines Screen U Benzodiazepines Scrn Urine Cocaine Screen U Cannabinoids Screen Serum Alcohol 09/21/18 09/21/18 09/21/18 15:43 16:23 16:53 WBC RBC Hgb Hct MCV MCH MCHC RDW Plt Count MPV Neut % (Auto) Lymph % (Auto) [place] % (Auto) Eos % (Auto) Baso % (Auto) Absolute Neuts (auto) Absolute Lymphs (auto) Absolute Monos (auto) Absolute Eos (auto) Absolute Basos (auto) Absolute Nucleated RBC Nucleated RBC % Sodium Potassium Chloride Carbon Dioxide Anion Gap BUN Creatinine Est GFR ( Amer) Est GFR (Non-Af Amer) BUN/Creatinine Ratio Glucose POC Glucose (mg/dL) 253 H 233 H Lactic Acid Calcium Total Bilirubin AST ALT Alkaline Phosphatase Ammonia Total Creatine Kinase Troponin I Total Protein Albumin Globulin Albumin/Globulin Ratio TSH Free T4 Total T3 Cortisol Urine Color Straw Urine Appearance Clear Urine pH 5.0 Ur Specific [place] 1.008 L Urine Protein Negative Urine Ketones Negative Urine Blood Negative Urine Nitrate Negative Urine Bilirubin Negative Urine Urobilinogen Negative Ur Leukocyte Esterase Negative Urine Glucose 2+(150 mg/dl) A Salicylates Urine Opiates Screen Acetaminophen Ur Barbiturates Screen Ur Phencyclidine Scrn Ur Amphetamines Screen U Benzodiazepines Scrn Urine Cocaine Screen U Cannabinoids Screen Serum Alcohol 09/21/18 09/21/18 09/21/18 18:22 19:07 19:46 WBC RBC Hgb Hct MCV MCH MCHC RDW Plt Count MPV Neut % (Auto) Lymph % (Auto) [place] % (Auto) Eos % (Auto) Baso % (Auto) Absolute Neuts (auto) Absolute Lymphs (auto) Absolute Monos (auto) Absolute Eos (auto) Absolute Basos (auto) Absolute Nucleated RBC Nucleated RBC % Sodium Potassium Chloride Carbon Dioxide Anion Gap BUN Creatinine Est GFR ( Amer) Est GFR (Non-Af Amer) BUN/Creatinine Ratio Glucose POC Glucose (mg/dL) 220 H 262 H Lactic Acid Calcium Total Bilirubin AST ALT Alkaline Phosphatase Ammonia Total Creatine Kinase Troponin I 0.02 Total Protein Albumin Globulin Albumin/Globulin Ratio TSH Free T4 Total T3 Cortisol Urine Color Urine Appearance Urine pH Ur Specific [place] Urine Protein Urine Ketones Urine Blood Urine Nitrate Urine Bilirubin Urine Urobilinogen Ur Leukocyte Esterase Urine Glucose Salicylates Urine Opiates Screen Acetaminophen Ur Barbiturates Screen Ur Phencyclidine Scrn Ur Amphetamines Screen U Benzodiazepines Scrn Urine Cocaine Screen U Cannabinoids Screen Serum Alcohol 09/21/18 09/21/18 09/21/18 20:06 21:35 23:55 WBC RBC Hgb Hct MCV MCH MCHC RDW Plt Count MPV Neut % (Auto) Lymph % (Auto) [place] % (Auto) Eos % (Auto) Baso % (Auto) Absolute Neuts (auto) Absolute Lymphs (auto) Absolute Monos (auto) Absolute Eos (auto) Absolute Basos (auto) Absolute Nucleated RBC Nucleated RBC % Sodium Potassium Chloride Carbon Dioxide Anion Gap BUN Creatinine Est GFR ( Amer) Est GFR (Non-Af Amer) BUN/Creatinine Ratio Glucose POC Glucose (mg/dL) 319 H 381 H 214 H Lactic Acid Calcium Total Bilirubin AST ALT Alkaline Phosphatase Ammonia Total Creatine Kinase Troponin I Total Protein Albumin Globulin Albumin/Globulin Ratio TSH Free T4 Total T3 Cortisol Urine Color Urine Appearance Urine pH Ur Specific [place] Urine Protein Urine Ketones Urine Blood Urine Nitrate Urine Bilirubin Urine Urobilinogen Ur Leukocyte Esterase Urine Glucose Salicylates Urine Opiates Screen Acetaminophen Ur Barbiturates Screen Ur Phencyclidine Scrn Ur Amphetamines Screen U Benzodiazepines Scrn Urine Cocaine Screen U Cannabinoids Screen Serum Alcohol 09/22/18 09/22/18 09/22/18 03:20 05:43 05:43 WBC 8.2 RBC 3.80 L Hgb 12.4 L Hct 37 MCV 97 H MCH 33 H MCHC 34 RDW 14 Plt Count 189 MPV 8.1 Neut % (Auto) 74.8 Lymph % (Auto) 17.0 [place] % (Auto) 6.9 Eos % (Auto) 0.8 Baso % (Auto) 0.5 Absolute Neuts (auto) 6.1 Absolute Lymphs (auto) 1.4 Absolute Monos (auto) 0.6 Absolute Eos (auto) 0.1 Absolute Basos (auto) 0 Absolute Nucleated RBC 0 Nucleated RBC % 0 Sodium 137 Potassium 4.5 D Chloride 105 Carbon Dioxide 26 Anion Gap 6 BUN 17 Creatinine 0.94 Est GFR ( Amer) 99.7 Est GFR (Non-Af Amer) 82.4 BUN/Creatinine Ratio 18.1 Glucose 256 H POC Glucose (mg/dL) 251 H Lactic Acid Calcium 8.7 Total Bilirubin AST ALT Alkaline Phosphatase Ammonia Total Creatine Kinase Troponin I Total Protein Albumin Globulin Albumin/Globulin Ratio TSH Free T4 Total T3 Cortisol 10.89 Urine Color Urine Appearance Urine pH Ur Specific [place] Urine Protein Urine Ketones Urine Blood Urine Nitrate Urine Bilirubin Urine Urobilinogen Ur Leukocyte Esterase Urine Glucose Salicylates Urine Opiates Screen Acetaminophen Ur Barbiturates Screen Ur Phencyclidine Scrn Ur Amphetamines Screen U Benzodiazepines Scrn Urine Cocaine Screen U Cannabinoids Screen Serum Alcohol Radiology Results: Patient Name: ROGER DUNBAR Medical Record#: [id number] Ordering Physician: Peyman Otero MD Acct.#: [id number] : 1960 Age: 58 Sex: M Location: EMERGENCY DEPARTMENT Exam Date: 09/21/18 1040 ADM Status: REG ER Order Information: CT BRAIN WO Accession Number: [id number] CPT: 15598 HISTORY: AMS COMPARISONS: None TECHNIQUE: Multiple contiguous axial CT scans were obtained of the head without intravenous contrast. FINDINGS: HEMORRHAGE/INFARCT: There is no hemorrhage or acute infarct. MASSES/SHIFT: There is no mass or shift. EXTRA-AXIAL SPACES: There are no extra-axial fluid collections. SULCI AND VENTRICLES: The sulci and ventricles are normal in size and position for the patient's stated age. CEREBRUM: There are no focal parenchymal abnormalities. BRAINSTEM: There are no focal parenchymal abnormalities. CEREBELLUM: There are no focal parenchymal abnormalities. VESSELS: The vessels are grossly normal. PARANASAL SINUSES: The paranasal sinuses are clear. ORBITS: The orbits are unremarkable. BONES AND SOFT TISSUE: No bone or soft tissue abnormalities are noted. OTHER: None IMPRESSION: NO ACUTE INTRACRANIAL PATHOLOGY. <Electronically signed by Chinmay Vincent MD in [facility]> 09/21/18 1121 Dictated By: Chinmay Vincent MD Dictated Date/Time: 09/21/18 1121 Transcribed Date/Time: 09/21/18 112 Copy to: Patient Name: ROGER DUNBAR Medical Record#: [id number] Ordering Physician: Peyman Otero MD Acct.#: [id number] : 1960 Age: 58 Sex: M Location: EMERGENCY DEPARTMENT Exam Date: 09/21/18 1040 ADM Status: REG ER Order Information: CHEST AP OR PORT Accession Number: [id number] CPT: 42084 Indication: Confusion, altered mental status Single frontal view of the chest performed at 1102 hours was reviewed. Comparison is made with previous exam dated October 17, 2014. No mediastinal shift is noted. Heart is of normal size and configuration. Lung urias appear clear. IMPRESSION: NO ACTIVE CARDIOPULMONARY DISEASE IS NOTED. <Electronically signed by Elizabeth Godinez MD in [facility]> 09/21/18 1143 Dictated By: Elizabeth Godinez MD Dictated Date/Time: 09/21/18 1143 Transcribed Date/Time: 09/21/18 1139 Copy to: EKG Report: His EKG shows normal sinus rhythm (I reviewed this myself) Assessment - Problem List Assessment: Patient Problems Severe diabetic hypoglycemia (Acute) Diabetic retinopathy associated with type 1 diabetes mellitus (Chronic) History of Bibi thyroiditis (Chronic) Hypercholesterolemia (Chronic) Type 1 diabetes mellitus (Chronic) Plan: Severe diabetic hypoglycemia (Acute)Type 1 diabetes mellitus (Chronic) He has had x 2 major hypoglycemic episodes in the morning recently - the second requiring hospital observation. He has no neurocognitive deficits this morning that are detectable. Adrenal insufficiency has been ruled out. Possibilities: - He mixed up his lantus insulin with his novolog - he denies this is possible - He injected a vein in his leg. He refuses to use his abdomen - He didn't eat at the time of the injection - he states he took no novolog and lantus should not act so quickly - He has gastroparesis that may have stopped the candy he ate from working. Solutions: - Cut lantus to 24 units daily - Inject in his abdomen (he won't) - Continuous glucose monitor - most likely Dexcom G6 (doesn't require calibration or finger sticks - can alarm to smart phone) - Obtain glucagon kit and teach his Yazan how to use this. Secondary diagnoses. Diabetic retinopathy associated with type 1 diabetes mellitus (Chronic) History of Bibi thyroiditis (Chronic) Hypercholesterolemia (Chronic) He is fit for discharge. I have discussed the above with the patient and his Yazan. I have prescribed a glucagon emergency kit. She will come in with him next Friday.
[2018-09-22] MEDS ORDERED: Ramipril CAP* 10 MG PO SCH (09:00)
[2018-09-22 09:23] VITALS: BP 122/61
== END 2018-09-22 10:40 | disposition home or self-care (01) ==
LOC: ED 10:31 → ICU 13:40 → OBSVTOIN 13:40 → INTOOBSV 13:40 → MED 21:04
PROVIDERS: ADMIT Internal Medicine; ATTEND Internal Medicine
DX: E11.649 Type 2 diabetes mellitus with hypoglycemia without coma (principal); E10.319 Type 1 diabetes mellitus with unspecified diabetic retinopathy without macular edema; Z86.39 Personal history of other endocrine, nutritional and metabolic disease; E78.00 Pure hypercholesterolemia, unspecified; I10 Essential (primary) hypertension
CPT/HCPCS: 36415; 70450; 71045; 80048; 80053; 80307; 80320; 80329; 81003; 82140; 82533; 82550; 83605; 84439; 84443; 84479; 84484; 84681; 85025; 87040; 87641; 93005; 96365; 96372; 99284; A9270-GY; G0378; G0480; J1650; J3480

== ENCOUNTER → 2019-03-15 | Day surgery (SDC) | payer BC ==
--- NOTE | 2019-02-22 10:38 | HP ---
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 Robel Walter * ADMISSION HISTORY AND PHYSICAL: DATE OF ADMISSION: 03/15/19 ATTENDING SURGEON: Jewel Guzman MD * (TRACI Wild, dictating) CHIEF COMPLAINT: Recurrent left inguinal hernia, possible right inguinal hernia. HISTORY OF PRESENT ILLNESS: This is a 58-year-old male who underwent open repair of left inguinal hernia around 2010 with mesh. His postoperative course was prolonged in terms of pain, though eventually after about 8 months, he states that things improved and was stable for a number of years. Somewhere in the last 6 to 12 months, he had a noted a bulge in the left groin and in the past couple of months, he noticed increased discomfort particularly related to physical activity. He has not had any significant GI or changes and nothing to suggest incarceration or strangulation. He was seen by Dr. Guzman on and exam at that time confirmed the presence of a small recurrent left inguinal hernia and possibility a small right inguinal hernia. Dr. Guzman has discussed with him the indications for surgery, the risks, benefits, and alternatives and the patient would like to proceed as scheduled with robotic repair of recurrent left inguinal hernia with possible repair of right inguinal hernia. PAST MEDICAL HISTORY: 1. Type 1 diabetes. 2. Hypertension. PAST SURGICAL HISTORY: Previous surgeries: 1. Left inguinal herniorrhaphy as noted above. 2. He has also undergone right knee arthroscopy. 3. Left heel surgery, which was complicated by infection requiring multiple additional procedures. 4. He is also status post ORIF of a right ankle fracture. CURRENT MEDICATIONS: 1. Lantus 21 to 28 units q.a.m. based on fingersticks and activity level. 2. He also uses Humalog up to 5 units subcutaneously t.i.d. for meal coverage again based on fingersticks. 3. Atorvastatin 20 mg once daily. 4. Ramipril 10 mg once daily. DRUG ALLERGIES: None known. FAMILY HISTORY: Negative for anesthesia problems, bleeding, or clotting disorders. SOCIAL HISTORY: The patient is . He did have a son who lives at home. 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 He denies use of tobacco and drinks 2 to 3 drinks infrequently, maybe once monthly. He denies any IV drug use. REVIEW OF SYSTEMS: General: No recent constitutional symptoms or acute illnesses. His weight has been stable. HEENT: No problems reported. Cardiovascular: No history of chest pain, palpitations, or heart murmur. He states his blood pressure has not really been a management problem. Respiratory : No history of asthma, chronic cough, or shortness of breath. GI: No problems reported. Colonoscopy done in 2014 reportedly normal. : No problems reported. Endocrine: Type 1 diabetes, followed by Dr. Walter. No history of thyroid dysfunction. PHYSICAL EXAMINATION GENERAL: Well-nourished male, in no acute distress. VITAL SIGNS: Height 5 feet 6 inches, weight 150 pounds. Blood pressure 130/66 , pulse 72, respirations 16. HEENT: Pupils are equal and round, reactive. EOMs intact. No conjunctival pallor or scleral icterus. Oropharynx: Teeth in good repair. No intraoral lesions. NECK: No lymphadenopathy, thyromegaly, or masses. LUNGS: Clear to auscultation. No rales or wheezes. HEART: Regular rate and rhythm. No murmur noted. ABDOMEN: Soft, nontender to palpation. No palpable masses or organomegaly with the exception of the aforementioned inguinal hernias. There is a well- healed left inguinal herniorrhaphy scar. The only area I am able to palpate with a positive impulse on Valsalva is in the most lateral aspect of the left inguinal hernia repair. GENITALIA: Otherwise normal per Dr. Guzman's exam, not repeated today. RECTAL: Not done. BACK: No spinous process or CVA tenderness. EXTREMITIES: No edema, though by history, the patient states that he has some chronic edema of the left foot and ankle since his ORIF. NEUROLOGICAL: Grossly intact. SKIN: Warm and dry. No suspicious rashes or lesions noted. IMPRESSION: Recurrent left inguinal hernia, possible right inguinal hernia. PLAN: Robotic repair of recurrent left inguinal hernia, possible repair of right inguinal hernia (I presume that mesh will be used for the procedure, though this needs to be confirmed with Dr. Guzman). TRACI WILD [id number]/[facility] #: [id number] [facility]PITALKevan
[~2019-03-15] MED LIST: Buffered Lidocaine 1% SYRIN* 1 ML/SYRINGE INTRADERM ONE; Bupivacaine 0.5%* 50 ML MDV VIAL ONE; DiMENhydriNATE IV* 50 MG/ML VIAL IV PUSH ONE; EPHEDrine (Pressors)* 50 MG/ML VIAL ONE; Famotidine IV* 10 MG/ML 2 ML (20 mg) IV ONE; Famotidine IV* 10 MG/ML 2 ML (20 mg) ONE; HYDROmorphone INJ1* 1 MG/ML SYRINGE IV PRN; KETAMINE HCL* 50 MG/ML 10 ML VIAL ONE; Ketorolac INJ* 30 MG/ML 1 ML VIAL ONE; Lactated Ringers 1000 ML Bag* 1,000 ML IV SCH; Lidocaine 2% PF * 5 ML VIAL ONE; Midazolam* 1 MG/ML 5 ML VIAL (5 MG) ONE; Naloxone* 0.4 MG/ML 1 ML VIAL IV PRN; Ondansetron ODT TAB* 4 MG ONE; Ondansetron ODT TAB* 4 MG PO ONE; PROCHLORPERAZINE INJ 5 MG/ML 2 ML VIAL IV PRN; PROCHLORPERAZINE INJ 5 MG/ML 2 ML VIAL ONE; Phenylephrine 10 MG/ML VIAL* 1 ML VIAL ONE; Propofol* 10 MG/ML 20 ML BTL ONE; Rocuronium* 10 MG/ML VIAL ONE; Scopolamine 1.5 mg* PATCH ONE; Scopolamine 1.5 mg* PATCH TRANSDERM PRN; Scopolamine PATCH Remove* 1 NOTE MISC PATCH OFF ONE; Sugammadex * 500 MG/5 ML VIAL IV PUSH ONE; ceFAZolin 2 GM in NS PREMIX(*) 2 GM/100 ML BAG IVPB ONE; fentaNYL* 50 MCG/ML 2 ML VIAL (100 MCG VIAL) IV PRN; fentaNYL* 50 MCG/ML 2 ML VIAL (100 MCG VIAL) ONE; oxyCODONE/Acetamin 5/325 MG* TAB PO PRN
[2019-03-15 14:36] VITALS: BP 150/70
--- NOTE | 2019-03-15 17:08 | OP ---
DATE OF OPERATION: 03/15/19 - [facility] DATE OF : 60 SURGEON: Jewel Guzman MD BOBBIN CLEANER: ED Galindo PRE-OP DIAGNOSIS: Recurrent left, possible right inguinal hernia. POST-OP DIAGNOSIS: Bilateral inguinal hernias. OPERATIVE PROCEDURE: Repair robotically of recurrent left inguinal hernia and right inguinal hernia. INDICATIONS FOR PROCEDURE: Recurrent left inguinal hernia, possible right. Risks including, but not limited to bleeding, infection, injury to intraabdominal contents including the bowel, pelvic nerves and vessels, recurrence of hernia were discussed with the patient, who seemed to understand, agreed to the procedure, and all questions were answered. DESCRIPTION OF PROCEDURE: The patient was taken to the operating room, placed supine. Preoperative antibiotics were given. After a successful induction of general endotracheal anesthesia, the abdomen was prepped and draped in sterile fashion. Time-out was performed, indicating correct patient and correct procedure. A 5-mm trocar was placed in the left upper quadrant under direct visualization of the camera using a bladeless Optiview trocar. Pneumoperitoneum was achieved to 12 mmHg. Camera was placed in the abdomen. The abdomen was scanned. There was no obvious injury from trocar placement. 8- mm robotic trocars were placed in the midline and right upper quadrant respectively and then the 5-mm trocar was replaced with an 8-mm robotic trocar, all under direct visualization of the camera. The patient was placed in the slight Trendelenburg position. The robot was brought in and docked. The left side was approached first. The old mesh plug was easily noted. The peritoneum was taken down and the plug was gently dissected free from the cord and surrounding structures, and it was quite densely adherent to the posterior area and was left in place. A left-sided ProGrip anatomical mesh was then brought in and placed over the pelvis on the left covering the direct, indirect and femoral spaces. The peritoneum was then closed using running 2-0 V- Loc suture , 1 suture was used. Right was then approached. Peritoneum was taken down exposing the pelvis and the indirect hernia. The right side ProGrip anatomical mesh was then placed over the pelvis covering the femoral, direct and indirect spaces. The peritoneum was closed with running V-Loc suture. EBL minimal. Hemostasis was intact. The abdomen was scanned. No obvious injury was noted. Pneumoperitoneum was released from the abdomen after the needles were removed. Trocars were removed. The skin was closed with Monocryl and glue. He tolerated the procedure well. He was taken to Recovery in stable condition. [id number]/[facility] #: [id number] JOELLE
== END | disposition home or self-care (01) ==
LOC: OR 08:13
PROVIDERS: ATTEND Surgery
DX: K40.21 Bilateral inguinal hernia, without obstruction or gangrene, recurrent (principal); E10.9 Type 1 diabetes mellitus without complications; Z79.4 Long term (current) use of insulin; I10 Essential (primary) hypertension
CPT/HCPCS: 49651; S2900; A9270-GY; C1781; J0690; J0780; J1885; J2250; J2704; J3010; J3490

== ENCOUNTER 2019-06-01 12:14 | Observation (INO) | payer BC ==
--- NOTE | 2019-06-01 12:22 | ED ---
Neurological HPI - HPI Summary HPI Summary: Patient is a 59 y/o M presenting to the ED via EMS for a chief complaint of seizure that occurred on 06/01/19. Patient has a history of diabetes, took his insulin this morning around 9:30 without eating before after. Per EMS, patient had 3 generalized seizures and was clenching on EMS arrival. Patient was given 5 mg of Versed by EMS and had an initial blood glucose of 92 and a blood glucose of 22 on recheck. In the room, patient is diaphoretic and admits fatigue. He denies myalgia. He has a history of seizures. During a previous seizure, patient was told he had abnormal potassium levels. He denies any aggravating or alleviating factors. PMHx is significant for insulin-dependent DM. Patient is unsure if he took his insulin on 06/01/19. - History of Current Complaint Stated Complaint: SEIZURE AND DIABETIC ISSUE PER EMS Time Seen by Provider: 06/01/19 12:19 Hx Obtained From: Patient Onset/Duration: Sudden Onset, Resolved Timing: Sudden Onset Onset Severity: Moderate Current Severity: Moderate Seizure Severity: Moderate Number of Seizures: 3 Pain Scale Used: 0-10 Numeric Character: Other: - Fatigue and diaphoresis Seizure Character: Generalized Aggravating: Nothing Alleviating: Nothing Associated Signs and Symptoms: Positive: Seizure - Additional Pertinent History Primary Care Physician: [id number] - Allergy/Home Medications Allergies/Adverse Reactions: Allergies Allergy/AdvReac Type Severity Reaction Status Date / Time No Known Allergies Allergy Verified 03/15/19 08:45 Home Medications: Home Medications Aspirin TAB* [Aspirin 325 MG TAB*] 325 - 650 mg PO BEDTIME 06/01/19 [History Confirmed 06/01/19] Glucagon,Human Recombinant [Glucagon Emergency Kit] 1 mg INJ ONCE PRN 06/01/19 [ History Confirmed 06/01/19] Insulin ASPART (NF) [Novolog (NF)] 3 unit SUBCUT TID 06/01/19 [History Confirmed 06/01/19] PMH/Surg Hx/FS Hx/Imm Hx Previously Healthy: Yes Endocrine/Hematology History: Reports: Hx Diabetes - INSULIN(S)-LANTUS & LISPRO. HYPOGLYCEMIA IS OCCASIONAL Denies: Hx Bone Marrow Disease, Hx Sickle Cell Disease, Hx Thyroid Disease - DENIES, Hx Anemia Cardiovascular History: Reports: Hx Coronary Artery Disease - ATORVASTATIN FOR HIGH CHOLESTEROL, Hx Hypertension - RAMIPRIL TO TX Denies: Hx Pacemaker/ICD, Other Cardiovascular Problems/Disorders Respiratory History: Denies: Hx Asthma, Hx Chronic Obstructive Pulmonary Disease (COPD), Other Respiratory Problems/Disorders GI History: Denies: Hx Jaundice, Hx Ulcer, Other GI Disorders History: Denies: Hx Kidney Infection, Hx Kidney Stones, Other Problems/Disorders Musculoskeletal History: Reports: Hx Arthritis - RIGHT ANKLE Denies: Other Musculoskeletal History Sensory History: Denies: Hx Cataracts, Hx Contacts or Glasses - "READERS", Hx Glaucoma, Hx Legally Blind, Hx Deafness, Hx Hearing Aid Opthamlomology History: Denies: Hx Cataracts, Hx Contacts or Glasses - "READERS", Hx Glaucoma, Hx Legally Blind EENT History: Denies: Hx Deafness Neurological History: Denies: Other Neuro Impairments/Disorders - Cancer History Hx Chemotherapy: No - Surgical History Surgical History: Yes Surgery Procedure, Year, and Place: Hernia repair left groin 2010, Right ankle repair, screws & plates 1983, RIGHT KNEE ARTHROSCOPY 1999, LEFT HEEL 1992- INFECTED, 4 SURGERIES IN 6 WEEKS Hx Anesthesia Reactions: No Infectious Disease History: Denies: Hx Clostridium Difficile, Hx Hepatitis, Hx Human Immunodeficiency Virus (HIV), Hx Shingles, Hx Tuberculosis - Family History Known Family History: Positive: Hypertension, Diabetes - Social History Occupation: Employed Full-time Lives: With Family Alcohol Use: Occasionally Alcohol Amount: LAST BEER WAS 3 WEEKS AGO Hx Substance Use: No Substance Use Type: Reports: None Hx Tobacco Use: No Smoking Status (MU): Never Smoked Tobacco Review of Systems Positive: Fatigue, Skin Diaphoresis Neurological: Other - Positive seizure All Other Systems Reviewed And Are Negative: Yes Physical Exam - Summary Physical Exam Summary: Constitutional: Well-developed. Intermittently drowsy. Skin: Cool, clammy HENT: Normocephalic; Atraumatic Eyes: Conjunctiva normal Neck: Musculoskeletal ROM normal neck. (-) JVD, (-) Stridor, (-) Nuchal rigidity Cardio: Rhythm regular, rate normal, Heart sounds normal; Intact distal pulses; Radial pulses are 2+ and symmetric. (-) Murmur Pulmonary/Chest wall: Effort normal. (-) Respiratory distress, (-) Wheezes, (-) Rales Abd: Soft, (-) tenderness, (-) Distension, (-) Guarding, (-) Rebound Musculoskeletal: soft tissues masses to anterior thighs (chronic) Lymph: (-) Cervical adenopathy Neuro: Drowsy, Oriented x3 Psych: Mood and affect Normal Triage Information Reviewed: Yes Vital Signs Reviewed: Yes - Marilyn Coma Scale Best Eye Response: 4 - Spontaneous Best Motor Response: 6 - Obeys Commands Best Verbal Response: 5 - Oriented Coma Scale Total: 15 Procedures - Sedation Patient Received Moderate/Deep Sedation with Procedure: No Diagnostics - Laboratory Result Diagrams: 06/01/19 12:26 06/01/19 12:26 Lab Statement: Any lab studies that have been ordered have been reviewed, and results considered in the medical decision making process. - Radiology Chest X-ray Radiology Interpretation Completed By: Radiologist Summary of Radiographic Findings: Chest X-ray IMPRESSION: No acute cardiopulmonary process by radiograph. Reviewed by Dr. Ortiz. - CT Brain CT CT Interpretation Completed By: Radiologist Summary of CT Findings: Brain CT IMPRESSION: NO ACUTE INTRACRANIAL PATHOLOGY. Reviewed by Dr. Ortiz. - EKG 12:23 Cardiac Rate: NL - [address] Segment: Normal Ectopy: None EKG Comparison: No Significant Change - Compared to 09/21/18 Summary of EKG Findings: An EKG at 12:23 reveals normal sinus rhythm 65 BPM, nml axis, nml intervals. No STEMI. No acute changes. Prolonged AL interval. Cavazos waves in lead II. Compared to 09/21/18, no significant change. Reviewed and interpreted by Dr. Ortiz. Re-Evaluation - Re-Evaluation First Eval Re-Evaluation Time: 12:34 Change: Unchanged Comment: At 12:34, patient is vomiting, given Zofran. Second Eval Re-Evaluation Time: 12:38 Change: Unchanged Comment: At 12:38, patients at bedside. She corroborates the patient had 3 seizures. She denies a history of seizures, but admits possibly something brief in 2001. Similar episode of hypoglycemia/hypothermia in September Course/Dx - Course Course Of Treatment: 59 y/o male w hx IDDM p/w hypoglycemia and seizure x3. - now s/p D50 and D10, BG here 165. - Check CBC, CMP, trop and EKG. UA and CXR to r/o infectious cause of hypoglycemia. CT brain given seizure (likely 2/2 hypoglycemia). - repeat BG 19, given D50 and started on d10 drip at 100/hr. - patient hypothermic, placed bear hugger, temp sensing mercer. No e.o infection on labs or imaging. - will admit to hospitalist. - Diagnoses Provider Diagnoses: Hypoglycemia, Hypothermia - Physician Notifications Discussed Care Of Patient With: Som Kirk - At 13:52, Dr. Som Kirk reviewed the patients case and agrees to admit the patient to [facility] with a diagnosis of hypothermia and hypoglycemia. Time Discussed With Above Provider: 13:52 Instructed by Provider To: Admit As Inpatient - Critical Care Time Critical Care Time: 30-74 min - Upon my evaluation, this patient had a high probability of imminent or life-threatening deterioration due to hypoglycemia which required my direct attention, intervention, and personal management. I have personally provided 30 minutes of critical care time exclusive of time spent on separately billable procedures. Time includes review of laboratory data , radiology results, discussion with consultants, and monitoring for potential decompensation. Interventions were performed as documented above. Discharge ED - Sign-Out/Discharge Documenting (check all that apply): Patient Departure - Admit - Discharge Plan Condition: Stable Disposition: ADMITTED TO [facility] Referrals: Robel Walter MD [Primary Care Provider] - - Billing Disposition and Condition Condition: STABLE Disposition: Admitted to [facility] - Attestation Statements Document Initiated by Vickie: Yes Documenting Scribe: Sarah Adair Provider For Whom Scribe is Documenting (Include Credential): Tracey Ortiz MD Scribe Attestation: I, Sarah Adair, scribed for Tracey Ortiz MD on 06/01/19 at 1438. Scribe Documentation Reviewed: Yes Provider Attestation: The documentation as recorded by the Sarah danielle accurately reflects the service I personally performed and the decisions made by me, Tracey Ortiz MD Status of Scribe Document: Viewed
[2019-06-01] MEDS ORDERED: Ondansetron INJ* 2 MG/ML VIAL IV ONE (12:23)
[2019-06-01] MEDS ORDERED: Ondansetron INJ* 2 MG/ML VIAL ONE (12:32)
[2019-06-01] MEDS ORDERED: NS 0.9% 1000 ML** 1,000 ML IV ONE (12:34)
[2019-06-01 12:37] LABS: ABS Basophils 0.1 10^3/ul (0-0.2); ABS Eosinophils 0.2 10^3/ul (0-0.6); ABS Lymphocytes 2.5 10^3/ul (1.0-4.8); ABS Monocytes 0.6 10^3/ul (0-0.8); ABS Neutrophils 3.2 10^3/ul (1.5-7.7); Eosinophil % 3.7 %; Hematocrit 42 % (42-52); Hemoglobin 14.5 g/dL (14.0-18.0); Lymphocyte % 38.3 %; Mean Corpuscular HGB Conc 34 g/dL (31-36); Mean Corpuscular Hemoglobin 33 pg (27-31); Mean Corpuscular Volume 97 fL (80-94); Mean Platelet Volume 8.1 fL (7.4-10.4); Platelet Count 202 10^3/uL (150-450); Red Blood Count 4.38 10^6 /uL (4.18-5.48); Red Cell Distribution Width 13 % (10-15); White Blood Count 6.6 10^3/uL (3.5-10.8)
[2019-06-01 12:54] LABS: Albumin 4.2 g/dL (3.2-5.2); Albumin/Globulin Ratio 1.6 (1-3); BUN/Creatinine Ratio 18.8 (8-20); Calcium 9.2 mg/dL (8.6-10.3); EGFR African American 91.5 (>60); EGFR Non-African American 75.6 (>60); Globulin 2.7 g/dL (2-4); Potassium 2.8 mmol/L (3.5-5.0); Total Bilirubin 0.8 mg/dL (0.2-1.0); Total Protein 6.9 g/dL (6.4-8.9)
[2019-06-01] MEDS ORDERED: Dextrose 50% VIAL 50 ml ONE (13:36)
[2019-06-01] MEDS ORDERED: Dextrose 50% Syringe 50 ML* 25 GM/50 ML SYRINGE IV PUSH ONE ×2 (13:36→15:17)
[2019-06-01] MEDS ORDERED: Dextrose 50% VIAL 50 ml IV ONE (13:39)
[2019-06-01] MEDS: KCL 20 MEQ/100 ML IVPREMIX* 20 MEQ/100 ML BAG IV SCH ×2 (13:48→16:34)
[2019-06-01] MEDS ORDERED: D10W 500 ML BAG* 500 ML IV SCH ×2 (14:00→16:41)
[2019-06-01 14:25] LABS: Urine Appearance Clear; Urine Bilirubin Negative (Negative); Urine Blood Negative (Negative); Urine Color Yellow; Urine Glucose 1+(50 mg/dL) (Negative); Urine Ketones Negative (Negative); Urine Nitrite Negative (Negative); Urine Protein Negative (Negative); Urine Specific Gravity 1.011 (1.010-1.030); Urine Urobilinogen Negative (Negative)
[2019-06-01 14:26] LABS: TSH (Thyroid Stimulating Horm) 2.84 mcIU/mL (0.34-5.60)
[2019-06-01] MEDS ORDERED: Ondansetron INJ* 2 MG/ML VIAL IV PRN (15:02)
[2019-06-01] MEDS ORDERED: Acetaminophen TAB* 325 MG PO PRN (15:02)
[2019-06-01] MEDS ORDERED: Dextrose 50% VIAL 50 ml IV PUSH PRN (15:18)
--- NOTE | 2019-06-01 16:24 | HP ---
CC: Dr. Robel Walter * ADMISSION HISTORY AND PHYSICAL: DATE OF ADMISSION: 06/01/19 PRIMARY CARE PROVIDER: Dr. Robel Walter. HEALTHCARE PROXY: His . CODE STATUS: Full. SOURCE OF INFORMATION: History obtained from interview with the patient, his and his brother. RELIABILITY: Good. CHIEF COMPLAINT: Seizure-like activity, low blood sugar. 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 His blood glucose preprandial was 118. He administered 20 units of Lantus into his leg. At 9:30 a.m., he started getting dressed. His found him putting on a second set of socks which is usual, but did think he was a little slow. When she came back to check up on him again, he was unconscious. He did not have breakfast this morning, but he usually would not have breakfast by this time. She noticed a seizure-like activity with him flailing his arms and his legs. It lasted for about 30 seconds, but definitely less than a minute. It occurred 2 to 4 more times before presenting to the emergency room. In the field, his glucose was measured at 22. On presentation to the emergency room, his blood glucose was 19 and his temperature rectally was 92.2 degrees Fahrenheit. Of note, the patient has had approximately 4 episodes of hypoglycemia this year with 2 resulting in hospital visits and the other 2 with EMS visits to his home where he declined to come to the hospital. He frequently has low blood sugars to the 30s intermittently about 1 time per month. He notes no changes in his home Lantus regimen he administers in his leg, although it has been recommended that he administer in his belly per Dr. Walter's last discharge summary. He has no confirmed seizures, although there was a suspected seizure in the setting of hypoglycemia in 2001. He has had no recent fevers, chills, or night sweats. No changes in his medications or travel as indicated above. No cough, shortness of breath, chest pain, polyuria, polydipsia, urinary frequency, or headaches. PAST MEDICAL HISTORY: Includes type 1 diabetes complicated by hypoglycemia as well as episode of hypothermia in August 2018, hyperlipidemia, hypertension, history of Bibi's thyroiditis. PAST SURGICAL HISTORY: Left inguinal hernia repair, second hernia repair in February 2016, right knee surgery, and heel surgery. MEDICATIONS: 1. Lantus 25 to 28 units in the morning. 2. Humalog 3 units for every 50 over 150 delivered postprandially. 3. Ramipril 10 in the evening. 4. Atorvastatin 20 in the evening. 5. Aspirin full dose p.r.n. for pain. ALLERGIES: No known drug allergies. FAMILY HISTORY: Father with type 2 diabetes and gastric cancer and mother with MS. 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 Has rare alcohol. No tobacco. REVIEW OF SYSTEMS: As per HPI. Otherwise, all other systems negative. PHYSICAL EXAMINATION GENERAL: He is alert and oriented x3, in no apparent distress. VITAL SIGNS: In the emergency room on presentation when seen by this author, 135/72; heart rate was 71; respiratory rate of 16; he is 97% on room air; temperature noted at 90.5 orally and 22.2 rectally, currently 94.5. HEENT: Oropharynx is clear. Moist mucous membranes. LUNGS: Have faint rhonchi in the right base. HEART: He has regular rate and rhythm. No murmurs, rubs, or gallops. ABDOMEN: Soft, nontender, nondistended. EXTREMITIES: Warm and well perfused without clubbing, cyanosis, or edema. Less than 2 seconds cap refill. NEUROLOGIC: He is alert and oriented x3, a little sluggish; however, participates fully in conversation. Cranial nerves II through XII are intact. Nonfocal. PSYCHIATRIC: No apparent anxiety, agitation, or depression. DIAGNOSTIC STUDIES/LAB DATA: Labs reviewed. Troponin I 0.00. TSH 2.8. Sodium 141, potassium 2.8, creatinine 1.0. White blood cell count 6.6, hemoglobin 14.5, platelets 202. His urine is bland. Data reviewed. Brain CT: No acute intracranial pathology. Chest x-ray: No acute cardiopulmonary process is evident. ASSESSMENT AND PLAN: A 59-year-old man with past medical history of type 1 diabetes complicated by hypoglycemia and hypothermia, now presenting with hypoglycemia, hypothermia and seizures. 1. Seizures. Suspect in the setting of hypoglycemia. There was an incidence in 2001 with suspected seizure-like activity. His CAT scan is normal now. I will check an MRI of the brain. I will continue neuro checks. I do not suspect meningitis with his rapid recovery without antibiotics and his similar history in the past with hypoglycemia and hypothermia. Correct glucose as indicated below and monitor. Follow up on MRI when performed. 2. Hypoglycemia. D10 at 100, D50 as needed for blood sugar less than 60. We will check hemoglobin A1c. Follow up with Endocrinology, Dr. Walter, his primary during the course of this hospital stay. Unclear what precipitated this event other than he has been frequently low in the 30s at least once per month. 3. Hypothermia. Currently utilizing Marc Hugger and improving. 4. Type 1 diabetes. Holding all insulin products until normoglycemic. 5. Morgan catheter. Attempt removal tomorrow. 6. Hypokalemia. Replete and recheck this evening. [id number]/[facility] #: [id number] JOELLE
[2019-06-01] MEDS: Enoxaparin(*) 40 MG/0.4 ML SYR SUBCUT SCH (16:38)
[2019-06-01] MEDS ORDERED: LORazepam INJ* 2 MG/ML 1 ML VIAL IV PUSH PRN (16:42)
[2019-06-01] MEDS ORDERED: Lorazepam PYXIS KEY PRN (16:42)
[2019-06-01 19:14] LABS: Calcium 9.1 mg/dL (8.6-10.3); Potassium 4.5 mmol/L (3.5-5.0)
[2019-06-01 19:19] LABS: BUN/Creatinine Ratio 19.8 (8-20); EGFR African American 110.1 (>60)
[2019-06-01] MEDS: Atorvastatin* 20 MG TAB PO SCH (20:59)
[2019-06-01 22:22] LABS: Magnesium 1.7 mg/dL (1.9-2.7)
[2019-06-01] MEDS ORDERED: Magnesium Sulfate 1 GM IV* 1 GM/100 ML BAG IV ONE (22:59)
[2019-06-01] MEDS ORDERED: Insulin LISPRO* 1 UNITS UNIT SUBCUT SCH (23:00)
[2019-06-02] MEDS ORDERED: Insulin LISPRO* 1 UNITS UNIT SUBCUT ONE (01:30)
[2019-06-02] MEDS ORDERED: Insulin LISPRO* 1 UNITS UNIT SUBCUT SCH (04:00)
[2019-06-02] MEDS: Insulin LISPRO* 1 UNITS UNIT SUBCUT SCH ×4 (04:32→22:16)
[2019-06-02 04:35] LABS: ABS Basophils 0.1 10^3/ul (0-0.2); ABS Lymphocytes 1.5 10^3/ul (1.0-4.8); ABS Monocytes 0.7 10^3/ul (0-0.8); ABS Neutrophils 7.5 10^3/ul (1.5-7.7); Eosinophil % 0.4 %; Hematocrit 39 % (42-52); Hemoglobin 13.5 g/dL (14.0-18.0); Mean Corpuscular HGB Conc 35 g/dL (31-36); Mean Corpuscular Hemoglobin 34 pg (27-31); Mean Corpuscular Volume 96 fL (80-94); Mean Platelet Volume 8.1 fL (7.4-10.4); Platelet Count 182 10^3/uL (150-450); Red Blood Count 4.02 10^6 /uL (4.18-5.48); Red Cell Distribution Width 13 % (10-15); White Blood Count 9.8 10^3/uL (3.5-10.8)
[2019-06-02 04:51] LABS: BUN/Creatinine Ratio 19.2 (8-20); Calcium 8.7 mg/dL (8.6-10.3); EGFR African American 93.6 (>60); EGFR Non-African American 77.4 (>60); Magnesium 1.9 mg/dL (1.9-2.7); Potassium 4.2 mmol/L (3.5-5.0)
[2019-06-02] MEDS: Ramipril CAP* 10 MG PO SCH (07:55)
[2019-06-02] MEDS: Enoxaparin(*) 40 MG/0.4 ML SYR SUBCUT SCH (16:26)
[2019-06-02] MEDS: Insulin GLARGINE(*) 1 UNITS UNIT SUBCUT SCH (20:01)
[2019-06-02] MEDS: Atorvastatin* 20 MG TAB PO SCH (20:01)
--- NOTE | 2019-06-02 23:42 | PN ---
ICU UNIT PROGRESS NOTE: DATE OF VISIT: 06/02/19 HISTORY OF PRESENT ILLNESS: The patient is a 59-year-old man admitted yesterday with hypoglycemia. Events leading up to hospitalization and hospital course reviewed. The patient is a clinic patient of Dr. Walter. I am following him in Dr. Walter's absence as he is out of town. The patient presented with 3 generalized seizures due to hypoglycemia. He was treated with Versed, glucose, D50 and started on a a D10 drip in the emergency room. His workup included a CT scan of the brain which was normal and MRI of the brain which was normal. I also discussed the case with Dr. Walter prior to his departure and he said that the patient has been very resistant to his suggestion over many years that he get a pump and continuous glucose monitor. Since coming to the ICU, his blood sugars have come up. His blood sugar went up as high as 449. He was placed on sliding scale insulin with discontinuation of D10. He was placed on fingersticks every 2 hours and insulin given per the sliding scale. The patient tells me he feels well. He would like to be discharged today. PHYSICAL EXAMINATION: Vital Signs: Blood pressure 122/71, pulse 80, respirations 18, temperature 98.8, O2 sat 95%. The patient is sitting in bed, in no acute distress. Skin is warm and dry. Chest: Clear. Heart: Normal S1 , S2. There are no murmurs, gallops, or rubs. Abdomen is soft and nontender. Extremities are without calf tenderness or edema. LABORATORY DATA: I/O 1235/1740. Fingerstick blood sugars since admission, initial blood sugar 165, down to 19, since then has been between 50 and greater than 444. Most recent blood sugar this morning was 164 and then 324 at 10:13 a.m. Other labs this morning, CBC: WBC 9.8, H and H 13.5/39, MCV 96, PLT is 182K. Chemistries: Sodium 136, potassium 4.2, chloride 104, CO2 28, BUN/ creatinine 19/0.99, glucose 139 at 4:30 a.m. Calcium 8.7, magnesium 1.9. Hemoglobin A1c measured yesterday was 8.3%. Urinalysis: Yellow, clear, specific gravity 1.011, pH 6, dipsticks negative, glucose 1+. MRSA nasal screen was negative. IMPRESSION: Type 1 diabetes with hypoglycemia due to taking insulin and not eating yesterday. He was also hypothermic yesterday. His temperature has come up. He had a Morgan catheter, which was removed. He had hypokalemia, which was repleted. I discussed getting an insulin pump with him. He said he would consider it, but he said this before and never followed through. I explained the negative consequences of having multiple episodes of hypoglycemia on mentation. Plan is to continue him on the sliding scale. We will restart his Lantus and follow blood sugars. Plan will be to discharge him tomorrow. I would like him to have follow up with Dr. Walter early next week and will try to get [facility] endocrinology nurse involved as well. [id number]/[facility] #: [id number] JOELLE
[2019-06-03] MEDS: Insulin LISPRO* 1 UNITS UNIT SUBCUT SCH ×2 (04:05→10:22)
[2019-06-03] MEDS: Insulin GLARGINE(*) 1 UNITS UNIT SUBCUT SCH (08:59)
[2019-06-03] MEDS: Ramipril CAP* 10 MG PO SCH (10:19)
[2019-06-03 11:56] VITALS: BP 118/57
== END 2019-06-03 12:00 | disposition home or self-care (01) ==
LOC: ED 12:14 → ICU 15:02 → MEDTELE 06-02 21:30
PROVIDERS: ADMIT Internal Medicine; ATTEND Internal Medicine Geriatric Medicine
DX: G40.909 Epilepsy, unspecified, not intractable, without status epilepticus (principal); E10.9 Type 1 diabetes mellitus without complications; Z79.84 Long term (current) use of oral hypoglycemic drugs; T68.XXXA Hypothermia, initial encounter; R94.31 Abnormal electrocardiogram [ECG] [EKG]; Z79.82 Long term (current) use of aspirin; Z79.899 Other long term (current) drug therapy; E87.6 Hypokalemia; I25.10 Atherosclerotic heart disease of native coronary artery without angina pectoris; E78.00 Pure hypercholesterolemia, unspecified; R53.83 Other fatigue; E06.3 Autoimmune thyroiditis
CPT/HCPCS: 36415; 70030; 70450; 70551; 71045; 80048; 80053; 81003; 82947; 83036; 83735; 84443; 84484; 85025; 87641; 93005; 96372; 96374; 96375; 99285; A9270-GY; G0378; J1650; J1815; J2405; J3475; J3480